=== PATIENT | male | born 1965 | race Caucasian/White ===

== ENCOUNTER 2021-02-26 11:01 | Emergency (ER) | payer OTHER ==
[~2021-02-26] VITALS: Ht 182.9 cm; Wt 79.4 kg
[2021-02-26] MEDS ORDERED: DIAZ10TA PO (11:30)
--- NOTE | 2021-02-26 11:33 | NUR ---
Patient discharged to home in stable condition. Written and verbal after care instructions given. Patient verbalizes understanding of instructions. Stressed follow up or return to ER for worsening s/s. Pt refused to bring the dc instruction print out.
[2021-02-26 11:34] VITALS: BP 147/80
== END 2021-02-26 11:35 | disposition home or self-care (01) ==
LOC: ER 11:01
DX: Z76.0 Encounter for issue of repeat prescription (principal)
CPT/HCPCS: A4663

== ENCOUNTER 2022-03-20 08:50 | Emergency (ER) | payer MEDICAID, OTHER ==
[~2022-03-20] VITALS: Ht 182.9 cm; Wt 79.4 kg
[~2022-03-20 08:50] MED LIST: DIAZ10TA PO
--- NOTE | 2022-03-20 08:55 | NUR ---
Dr Almeida evaluating the pt.
[2022-03-20] MEDS ORDERED: LORA-259 PO (09:09)
[2022-03-20 09:11] VITALS: BP 123/88
--- NOTE | 2022-03-20 09:14 | NUR ---
Patient discharged to home in stable condition. Written and verbal after care instructions given. Patient verbalizes understanding of instructions. Stressed follow up or return to ER for worsening s/s.
== END 2022-03-20 09:15 | disposition home or self-care (01) ==
LOC: ER 08:50
DX: R59.0 Localized enlarged lymph nodes (principal); F41.9 Anxiety disorder, unspecified
CPT/HCPCS: A4663